=== PATIENT | female | born 1975 | race Caucasian/White ===

== ENCOUNTER 2018-07-25 15:04 | Emergency (ER) | payer MEDICAID ==
[~2018-07-25] VITALS: Ht 154.9 cm; Wt 61.2 kg
--- NOTE | 2018-07-25 15:30 | NUR ---
c/o nausea vomiting and diarrhea x 3 days. PT AAOX4, VSS. DENIES ANY OTHER DISCOMFORT @ THIS TIME. AWAITING EVAL BY MD/PA. WILL CONT TO MONITOR.
[2018-07-25] MEDS ORDERED: ONDANSETRON HCL/PF 4 MG/2 ML VIAL ONE (16:42)
[2018-07-25] MEDS ORDERED: KETOROLAC TROMETHAMINE INJ 30 MG/ML VIAL ONE (16:42)
--- NOTE | 2018-07-25 16:55 | NUR ---
MEDICATED FOR NAUSEA, PT EHSAN WELL. AWAITING URINE TEST.
[2018-07-25 17:00] LABS: BASOPHILS % (AUTO) 0.1 % (0.0-2.0); EOSINOPHILS % (AUTO) 0.5 % (0.0-6.0); HEMATOCRIT 43 % (33-45); HEMOGLOBIN 14.6 g/dL (11.5-14.8); LYMPHOCYTES # (AUTO) 1.1 /CMM (0.8-4.8); LYMPHOCYTES % (AUTO) 26.5 % (20.0-44.0); MEAN CORPUSCULAR HGB CONC 34 g/dl (31.0-36.0); MEAN CORPUSCULAR VOLUME 92 fL (82-100); MONOCYTES # (AUTO) 0.4 /CMM (0.1-1.30); MONOCYTES % (AUTO) 9.1 % (2.0-12.0); NEUTROPHILS # (AUTO) 2.6 /CMM (1.8-8.9); NEUTROPHILS % (AUTO) 63.8 % (43.0-81.0); PLATELET COUNT (AUTO) 209 /CMM (150-450); RED BLOOD CELL COUNT(AUTO) 4.69 MIL/uL (4.0-5.2); WHITE BLOOD COUNT (AUTO) 4.1 K/uL (4.3-11.0)
[2018-07-25] MEDS ORDERED: ONDANSETRON HCL/PF 4 MG/2 ML VIAL IVP ONE (17:00)
[2018-07-25] MEDS ORDERED: IV NS 0.9% 1,000 ML BAG IV ONE ×2 (17:00→19:00)
[2018-07-25] MEDS ORDERED: KETOROLAC TROMETHAMINE INJ 30 MG/ML VIAL IV ONE (17:00)
[2018-07-25 17:13] LABS: CALCIUM, SERUM 8.2 mg/dL (8.5-10.1); CREATININE 0.5 mg/dL (0.6-1.3); POTASSIUM 3.8 mmol/L (3.5-5.1)
[2018-07-25 17:19] LABS: APPEARANCE,URINE SL CLOUDY (CLEAR); BILIRUBIN,URINE NEGATIVE (NEGATIVE); BLOOD, URINE NEGATIVE Ery/uL (NEGATIVE); COLOR,URINE YELLOW (YELLOW); KETONES,URINE 3+ (NEGATIVE); LEUKOCYTE ESTERASE ,URINE NEGATIVE (NEGATIVE); NITRITE, URINE NEGATIVE (NEGATIVE); PH,URINE 5.5 (5.0-8.0); PROTEIN,URINE NEGATIVE (NEGATIVE); UGLUCOSE 3+ mg/dL (NEGATIVE); UROBILINOGEN,URINE 0.2 EU/dL (0.2)
[2018-07-25 17:21] LABS: ALBUMIN 3.5 g/dL (3.4-5.0); BILIRUBIN,DIRECT 0.1 mg/dL (0.0-0.2); BILIRUBIN,TOTAL 0.4 mg/dL (0.2-1.0); TOTAL PROTEIN, SERUM 7.4 g/dL (6.4-8.2)
[2018-07-25 17:38] LABS: BACTERIA,URINE Few /HPF (None Seen); RBC,URINE 0-2 /HPF (0-2); SQUAMOUS EPITHELIAL CELL,UR Few /HPF (None Seen)
--- NOTE | 2018-07-25 17:44 | NUR ---
MEDICATED FOR PAIN, PT EHSAN WELL.
--- NOTE | 2018-07-25 19:24 | NUR ---
REPORT RECEIVED FROM AM SHIFT.
--- NOTE | 2018-07-25 20:21 | NUR ---
ACCU CHECK POST FLUIDS IS 148.
[2018-07-25] MEDS ORDERED: HYDROCODONE/APAP 5/325MG 1 EACH TABLET ONE (20:38)
--- NOTE | 2018-07-25 20:40 | NUR ---
PT REMEDICATED FOR PAIN.
--- NOTE | 2018-07-25 20:57 | NUR ---
DX - HYPERGLYCEMIA. ACI WITH RX GIVEN. PT DISCHARGED HOME TO FOLLOW UP WITH PMD.
[2018-07-25] MEDS ORDERED: HYDROCODONE/APAP 5/325MG 1 EACH TABLET PO ONE (21:00)
[2018-07-25 21:01] VITALS: BP 116/72
== END 2018-07-25 21:04 | disposition home or self-care (01) ==
LOC: ER 15:05
DX: R11.2 Nausea with vomiting, unspecified (principal); R19.7 Diarrhea, unspecified; R10.84 Generalized abdominal pain; E86.0 Dehydration; E11.65 Type 2 diabetes mellitus with hyperglycemia; R82.4 Acetonuria; R51 Headache
CPT/HCPCS: 36415; 80048; 80076; 81001; 82962; 83690; 84703; 85025; 96361; 96374; 96375; 99283; A4606; J1885; J2405; J7030 ×2; Z7610; 81000-TC

== ENCOUNTER 2022-09-25 18:17 | Emergency (ER) | payer MEDICAID ==
[~2022-09-25] VITALS: Ht 154.9 cm; Wt 59.9 kg
--- NOTE | 2022-09-25 18:52 | NUR ---
The patient came to the emergency department with her with a chief complaint of right ear pain, right eye swelling, and sore throat with cough and congestion x5 days. The patient denies fever or chills.
[2022-09-25] MEDS ORDERED: GUAI-671 PO (19:00)
[2022-09-25] MEDS ORDERED: AMOX500C2 PO (19:00)
[2022-09-25 19:30] VITALS: BP 154/98
--- NOTE | 2022-09-25 19:30 | NUR ---
Patient discharged to home in stable condition. RX Written and verbal after care instructions given. Patient verbalizes understanding of instruction. PT ambulatory with a steady gait
== END 2022-09-25 19:31 | disposition home or self-care (01) ==
LOC: ER 18:21
DX: H66.91 Otitis media, unspecified, right ear (principal); E11.9 Type 2 diabetes mellitus without complications; Z79.899 Other long term (current) drug therapy